=== PATIENT | male | born 1990 | race Hispanic/Latino ===

== ENCOUNTER 2018-07-23 00:06 | Emergency (ER) | payer SELFPAY ==
[2018-07-23 01:17] LABS: BASOPHILS % (AUTO) 0.5 % (0.0-5.0); EOSINOPHILS % (AUTO) 0.3 % (0.0-8.0); HEMATOCRIT 39.8 % (42-54); LYMPHOCYTES % (AUTO) 20.2 % (21.0-51.0); MEAN CORPUSCULAR HEMOGLOBIN 30.3 pg (27.0-33.0); MEAN CORPUSCULAR HGB CONC 34.4 g/dL (32.0-36.0); MONOCYTES % (AUTO) 6.2 % (3.0-13.0); NEUTROPHILS % (AUTO) 72.8 % (40.0-77.0); NUCLEATED RED BLOOD CELLS 0.1 % (0.0-0.19); PLATELET COUNT (AUTO) 381 K/uL (130-400); RED BLOOD CELL COUNT(AUTO) 4.52 MIL/uL (4.50-6.20); RED CELL DISTRIBUTION WIDTH 13.1 % (11.0-15.5); WHITE BLOOD COUNT (AUTO) 12.9 K/uL (4.8-10.8)
[2018-07-23 01:30] LABS: CREATININE 0.9 mg/dL (0.5-1.5); POTASSIUM 4.2 mmol/L (3.5-5.1)
[2018-07-23 01:39] LABS: ALBUMIN 4.5 g/dL (3.5-5.0); BILIRUBIN,TOTAL 0.3 mg/dL (0.2-1.0)
== END 2018-07-23 02:15 | disposition home or self-care (01) ==
LOC: EDH 00:06
DX: R07.89 Other chest pain (principal); F43.10 Post-traumatic stress disorder, unspecified
CPT/HCPCS: 36415; 71045; 80053; 82550; 84484; 85025; 93005

== ENCOUNTER 2023-08-06 08:10 | Emergency (ER) | payer OTHER ==
[~2023-08-06] VITALS: Ht 177.8 cm; Wt 88.5 kg
[2023-08-06 08:25] VITALS: BP 136/60; PULSE 93; RESP 18; O2SAT 96
[2023-08-06] MEDS: CYCLOBENZAPRINE HCL 10 MG TABLET PO ONE (09:38)
[2023-08-06] MEDS: HYDROMORPHONE 1 MG INJ IVP ONE (09:38)
[2023-08-06] MEDS: KETOROLAC 15MG/ML VIAL (15MG/ML) IV ONE (09:38)
[2023-08-06] MEDS: ACETAMINOPHEN 500 MG TABLET PO ONE (09:39)
[2023-08-06] MEDS ORDERED: LIDO1ADH71 TP (11:40)
[2023-08-06] MEDS ORDERED: ACET-66 PO (11:40)
[2023-08-06] MEDS ORDERED: MELO-108 PO (11:40)
[2023-08-06] MEDS ORDERED: DICL20GE TP (11:40)
[2023-08-06] MEDS ORDERED: ORPH100 PO (11:40)
== END 2023-08-06 12:00 | disposition home or self-care (01) ==
LOC: EDH 08:10
DX: M54.50 Low back pain, unspecified (principal)
CPT/HCPCS: 99285; 72131; 96374; 96375; 72192; J1170; J1885